=== PATIENT | male | born 1975 | race Caucasian/White ===

== ENCOUNTER 2019-10-16 10:13 | Outpatient (CLI) | payer OTHER, SELFPAY ==
--- NOTE | 2019-10-16 10:30 | CT_ITS ---
WS: [id number] CT THORACIC SPINE TECHNIQUE: Noncontrast CT of the thoracic spine with coronal and sagittal reformatted images. CLINICAL INFORMATION: Thoracic fracture COMPARISON: December 15, 2018 DLP: 1321.[address] scans at [facility] use at least one of these dose optimization techniques: automat ed exposure control; mA and/or kV adjustment per patient size (includes targeted exams where dose is matched to clinical indication); or iterative reconstruction. FINDINGS: Again seen is the anterior superior compression fracture involving the T12 superior endplate. Loss of approximately 50% vertebral body height is stable. Mild anterior wedging at this level with evidence of interval healing. No significant retropulsion. Additional nondisplaced fractures involving the mcgovern perior articular facets at T12 demonstrate interval healing since the prior examinations. No new comp ression fractures. Mild disc bulging at T11-T12 is unchanged. Tiny central disc protrusions at T5-T6 and T6-T7 appears s table. Endplate Schmorl's nodes in the lower thoracic spine. No high-grade central canal stenosis. [address]/CT thoracic spin wo con* [id number] IMPRESSION: 1. Anterior wedging with compression fracture involving the superior endplate T 12 with interval healing and stable loss of approximately 50% vertebral body he ight anteriorly. No retropulsion. 3. Additional nondisplaced fractures involving the superior articulating facets bilaterally at T12 demonstrates interval healing since the prior examination 4. No new compression fractures. 5. No other significant changes.
== END 2019-10-16 10:14 | disposition home or self-care (01) ==
LOC: RADWPI 10:18
PROVIDERS: Family Provider Emergency Medicine Emergency Medical Services; Visit Provider Licensed Practical Nurse
DX: M48.54XA Collapsed vertebra, not elsewhere classified, thoracic region, initial encounter for fracture (principal); X58.XXXA Exposure to other specified factors, initial encounter
CPT/HCPCS: 72128